=== PATIENT | male | born 1960 | race American Indian/Alaskan Native ===

== ENCOUNTER 2017-03-08 06:05 | Emergency (ER) | payer OTHER ==
[2017-03-08 06:58] LABS: Basophils % (Auto) 0.7 % (0.0-1.8); Eosinophils % (Auto) 1.1 % (0.0-4.3); Hematocrit 49.7 % (35.5-45.6); Hemoglobin 16.7 gm/dl (11.8-15.2); Mean Corpuscular HGB Conc 34 % (32-34); Mean Corpuscular Hemoglobin 31 pg (28-32); Mean Corpuscular Volume 92 fl (84-94); Platelet Count 199 K/mm3 (140-440); Red Cell Distribution Width 13.6 % (13.2-15.2); White Blood Count 7.7 K/mm3 (4.5-11.0)
[2017-03-08 07:18] LABS: Alanine Aminotransferase 14 units/L (7-56); Albumin 4.6 g/dL (3.9-5); Albumin/Globulin Ratio 1.6 %; Alkaline Phosphatase 44 units/L (35-129); Anion Gap 17 mmol/L; BUN/Creatinine Ratio 15.83; Bilirubin,Total 0.9 mg/dL (0.1-1.2); Blood Urea Nitrogen 19 mg/dL (9-20); Calcium 9.5 mg/dL (8.4-10.2); Carbon Dioxide 24 mmol/L (22-30); Chloride 99.8 mmol/L (98-107); Glucose 109 mg/dL (75-100); Lipase 22 units/L (13-60); Potassium 3.8 mmol/L (3.6-5.0); Sodium 137 mmol/L (137-145); Total Protein 7.5 g/dL (6.3-8.2)
[2017-03-08 08:07] LABS: Bilirubin,Urine NEG (Negative); Blood,Urine MOD (Negative); Ketones,Urine NEG (Negative); Leukocyte Esterase,Urine NEG (Negative); Mucus,Urine FEW /HPF; Nitrite,Urine NEG (Negative); Protein,Urine <15 mg/dL mg/dL (Negative); Urobilinogen,Urine < 2.0 mg/dL (<2.0)
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
[2017-03-08] MEDS: NACL 0.9% 1000 ML 1,000 ML IV ONE (10:44)
[2017-03-08] MEDS: ZOFRAN IV ONE (11:10)
[2017-03-08] MEDS: NACL ONE (11:10)
[2017-03-08] MEDS: TORADOL IV ONE (11:11)
--- NOTE | 2017-03-08 11:48 | Cat Scan Report ---
CT of the abdomen and pelvis with IV and oral contrast. History: Abdominal pain. Findings: A subcentimeter round hypodensity is seen in the superior aspect of the left lobe of the liver. A 1 cm diameter area of homogeneous enhancement is also seen in the superior aspect of the liver. No additional focal hepatic findings are seen. The spleen, pancreas, and gallbladder are normal. The adrenal glands are normal. There is a 4.2 cm in diameter cysts in the upper pole of the left kidney. A subcentimeter hypodensity is seen in the lower pole of the left kidney. 2 tiny subcentimeter hypodensities are seen in the right kidney. There is no evidence of hydronephrosis. There are no pelvic masses or abnormal fluid collections. The appendix is normal. There are no pelvic masses or abnormal fluid collections. Impression: 1. No acute findings. 2. Bilateral renal cysts. 3. Tiny hepatic cyst. A 1 cm enhancing lesion in the right lobe of the liver is nonspecific, but probably represents a cavernous hemangioma.
[2017-03-08 13:58] VITALS: BP 168/74
== END 2017-03-08 11:56 | disposition home or self-care (01) ==
LOC: ED 06:05
DX: R10.84 Generalized abdominal pain (principal); I10 Essential (primary) hypertension
CPT/HCPCS: 36415; 74177; 80053; 81001; 83690; 85025; 96361; 96374; 96375; 99284; J1885; J2405; J7030; Q9967

== ENCOUNTER 2018-05-08 06:48 | Inpatient (IN) | payer OTHER ==
[2018-05-08] MEDS ORDERED: ASPIRIN PO ONE (07:02)
[2018-05-08 07:42] LABS: Basophils % (Auto) 0.8 % (0.0-1.8); Eosinophils # (Auto) 0.1 K/mm3 (0.0-0.4); Eosinophils % (Auto) 1.7 % (0.0-4.3); Hematocrit 46.6 % (35.5-45.6); Hemoglobin 16.1 gm/dl (11.8-15.2); Lymphocytes # (Auto) 1.5 K/mm3 (1.2-5.4); Lymphocytes % (Auto) 35.2 % (13.4-35.0); Mean Corpuscular HGB Conc 34 % (32-34); Mean Corpuscular Hemoglobin 31 pg (28-32); Mean Corpuscular Volume 91 fl (84-94); Monocytes # (Auto) 0.4 K/mm3 (0.0-0.8); Monocytes % (Auto) 8.8 % (0.0-7.3); Platelet Count 193 K/mm3 (140-440); Red Blood Count 5.13 M/mm3 (3.65-5.03)
[2018-05-08 07:57] LABS: BUN/Creatinine Ratio 19; Blood Urea Nitrogen 15 mg/dL (9-20); Calcium 9.3 mg/dL (8.4-10.2); Hemolysis Index 12
[2018-05-08] MEDS ORDERED: NITRO-BID 2% TP ONE (11:09)
[2018-05-08] MEDS ORDERED: PROTONIX IV ONE (11:09)
[2018-05-08] MEDS ORDERED: ASPIRIN ONE (11:21)
[2018-05-08 12:11] LABS: INR 0.81 (0.87-1.13)
[2018-05-08 12:12] LABS: Partial Thromboplastin Time 49.6 Sec. (24.2-36.6)
[2018-05-08 12:22] LABS: Creatine Kinase MB 5.1 ng/mL (0.0-4.0)
[2018-05-08 12:24] LABS: Alanine Aminotransferase 12 units/L (7-56); Albumin 3.8 g/dL (3.9-5); Lipase 29 units/L (13-60)
[2018-05-08 12:25] LABS: Bilirubin,Direct < 0.2 mg/dL (0-0.2)
--- NOTE | 2018-05-08 12:45 | XRay Report ---
PORTABLE CHEST INDICATION: Hypertension. COMPARISON: 05/27/2015 FINDINGS: Portable, frontal chest radiograph demonstrates stable cardiomediastinal silhouette/possible mild cardiomegaly. Clear lungs. Stable lower cervical fusion hardware and multilevel thoracic spondylosis. EKG leads. CONCLUSION: No acute chest process, stable. Thank you for the opportunity to participate in this patient's care.
--- NOTE | 2018-05-08 12:51 | History and Physical Report ---
History of Present Illness Chief complaint: My chest hurts. History of present illness: 57 YO Male with HTN, Noncompliance presents to ED for evaluation. Pt states that he has experienced pain in his chest. Pt states that pain is 6-8/10, substernal, nonradiating, not worsened with exertion, or relieved with rest, associated with nausea, vomiting, and diaphoresis. Pt seen and evaluated in ED and found to have symptoms of ACD as well as Diastolic CHF. Pt denies fever, chills, shortness of breath, palpitations, prolonged travel, unilateral leg swelling, calf pain, individual/family history of DVT/PE, productive cough, trauma, or recent ill contacts. Pt admitted to telemetry. Cardiology consulted in ED. Past History Past Medical History: hypertension Past Surgical History: Other (Neck surgery) Social history: , lives with family. denies: smoking, alcohol abuse, prescription drug abuse Family history: hypertension Medications and Allergies Allergies Allergy/AdvReac Type Severity Reaction Status Date / Time No Known Allergies Allergy Verified 11/16/16 08:21 Home Medications Medication Instructions Recorded Confirmed Last Taken Type No Known Home Medications [No 05/08/18 05/08/18 Unknown History Reported Home Medications] Review of Systems Constitutional: no weight loss, no weight gain, no fever, no chills Ears, nose, mouth and throat: no ear pain, no ear discharge, no tinnitis, no decreased hearing, no nose pain, no nasal congestion Cardiovascular: chest pain, high blood pressure, no palpitations, no rapid/ irregular heart beat, no lightheadedness Respiratory: no cough, no cough with sputum, no excessive sputum, no hemoptysis Gastrointestinal: no nausea, no vomiting, no diarrhea, no constipation Genitourinary Male: no hematuria, no flank pain, no discharge, no urinary frequency Rectal: no pain, no incontinence, no bleeding Musculoskeletal: no neck stiffness, no neck pain, no shooting arm pain, no arm numbness/tingling, no low back pain, no shooting leg pain Integumentary: no rash, no pruritis, no redness, no sores, no wounds Neurological: no transient paralysis, no paralysis, no weakness, no parathesias , no numbness, no tingling, no seizures Psychiatric: no anxiety, no memory loss, no change in sleep habits, no sleep disturbances, no insomnia, no hypersomnia Endocrine: no cold intolerance, no heat intolerance, no polyphagia, no excessive thirst, no polydipsia, no polyuria, no nocturia Hematologic/Lymphatic: no easy bruising, no easy bleeding, no lymphadenopathy, no lymphedema Allergic/Immunologic: no urticaria, no allergic rhinitis, no wheezing, no persistent infections, no anaphylaxis, no angioedema Exam - Constitutional Vitals: Temp Pulse Resp BP Pulse Ox 98.2 F 58 L 12 157/79 97 05/08/18 08:13 05/08/18 08:18 05/08/18 08:18 05/08/18 08:18 05/08/18 08:18 General appearance: Present: mild distress - EENT Eyes: Present: PERRL ENT: hearing intact, clear oral mucosa - Neck Neck: Present: supple, normal ROM - Respiratory Respiratory effort: normal Respiratory: bilateral: CTA - Cardiovascular Heart Sounds: Present: S1 & S2. Absent: rub, click - Extremities Extremities: pulses symmetrical, No edema Peripheral Pulses: within normal limits - Abdominal General gastrointestinal: Present: soft, non-tender, non-distended, normal bowel sounds Male genitourinary: Present: normal - Integumentary Integumentary: Present: clear, warm, dry - Musculoskeletal Musculoskeletal: gait normal, strength equal bilaterally - Psychiatric Psychiatric: appropriate mood/affect, intact judgment & insight - Neurologic Neurologic: CNII-XII intact, moves all extremities Results - Labs CBC & Chem 7: 05/08/18 07:04 05/08/18 07:04 Labs: Abnormal lab results 05/08/18 05/08/18 05/08/18 Range/Units 07:04 07:04 10:19 WBC 4.2 L (4.5-11.0) K/mm3 RBC 5.13 H (3.65-5.03) M/mm3 Hgb 16.1 H (11.8-15.2) gm/dl Hct 46.6 H (35.5-45.6) % Lymph % (Auto) 35.2 H (13.4-35.0) % [place] % (Auto) 8.8 H (0.0-7.3) % PT (12.2-14.9) Sec. INR (0.87-1.13) APTT (24.2-36.6) Sec. Glucose 111 H (75-100) mg/dL Total Creatine Kinase 307 H (55-170) units/L CK-MB (CK-2) 5.1 H (0.0-4.0) ng/mL Albumin 3.8 L (3.9-5) g/dL 05/08/18 Range/Units 11:29 WBC (4.5-11.0) K/mm3 RBC (3.65-5.03) M/mm3 Hgb (11.8-15.2) gm/dl Hct (35.5-45.6) % Lymph % (Auto) (13.4-35.0) % [place] % (Auto) (0.0-7.3) % PT 11.6 L (12.2-14.9) Sec. INR 0.81 L (0.87-1.13) APTT 49.6 H (24.2-36.6) Sec. Glucose (75-100) mg/dL Total Creatine Kinase (55-170) units/L CK-MB (CK-2) (0.0-4.0) ng/mL Albumin (3.9-5) g/dL Assessment and Plan - Patient Problems (1) ACS (acute coronary syndrome) Current Visit: Yes Status: Acute Plan to address problem: Admit to telemetry, serial cardiac enzymes, ekg, echo, stress test, Morphine, supplemental oxygen, nitro, aspirin, cardiology consulted (2) CHF (congestive heart failure) Current Visit: Yes Status: Acute Qualifiers: Heart failure type: diastolic Plan to address problem: Admit to telemetry, Echo, Strict I/O, daily weight, monitor uop q shift, afterload reduction, cardiology consulted, BNP, D dimer, (3) HTN (hypertension) Current Visit: Yes Status: Acute Qualifiers: Hypertension type: essential hypertension Qualified Code(s): I10 - Essential (primary) hypertension Plan to address problem: Monitor BP q shift, continue medical management (4) GERD (gastroesophageal reflux disease) Current Visit: Yes Status: Acute Qualifiers: Esophagitis presence: without esophagitis Qualified Code(s): K21.9 - Gastro -esophageal reflux disease without esophagitis Plan to address problem: PPI therapy, CT Abdomen/Pelvis (5) DVT prophylaxis Current Visit: Yes Status: Acute Plan to address problem: SCD to ble while in bed.
--- NOTE | 2018-05-08 13:28 | Cat Scan Report ---
CT HEAD WITHOUT CONTRAST INDICATION: Vertigo. COMPARISON: None similar. FINDINGS: Noncontrast head CT demonstrates normal, symmetric ventricles and sulci without acute or recent infarct, hemorrhage, mass effect or midline shift. No abnormal extra-axial fluid collections. Posterior fossa structures and basilar cisterns appear within normal limits. Symmetric eye globes. Clear paranasal sinuses and mastoid air cells. Intact calvarium. Normal overlying scalp soft tissues. Right more than left external auditory canal debris may be directly visualized. Slight atherosclerotic ICA calcification. Edentulous jaw. Anterior and posterior cervical fusion hardware noted from C4 inferiorly. CONCLUSION: No acute intracranial CT abnormality with few other findings, as described. Thank you for the opportunity to participate in this patient's care.
[2018-05-08] MEDS ORDERED: BABY ASPIRIN PO STA (14:17)
[2018-05-08] MEDS ORDERED: MORPHINE IV PRN (14:17)
[2018-05-08] MEDS ORDERED: TYLENOL PO PRN (14:17)
[2018-05-08] MEDS ORDERED: ZOFRAN IV PRN (14:17)
[2018-05-08] MEDS ORDERED: SODIUM CHLORIDE FLUSH SYRINGE 10 ML IV PRN ×2 (14:17)
[2018-05-08] MEDS ORDERED: NITROSTAT SL PRN (14:17)
[2018-05-08] MEDS ORDERED: PROVENTIL IH PRN (14:17)
--- NOTE | 2018-05-08 14:48 | Cat Scan Report ---
CT ABDOMEN AND PELVIS WITH CONTRAST INDICATION: Epigastric pain. COMPARISON: 03/08/2017. FINDINGS: Abdomen and pelvis CT performed following intravenous administration of 100 cc of Omnipaque 300. LUNG BASES: Mild cardiomegaly again noted. Slight nonspecific distal esophageal prominence. ABDOMEN: Approximately 0.5 cm indeterminate hepatic hypodensity anteriorly towards the dome, axial image 9, series 2 and another 0.3 cm right hepatic hypodensity more inferiorly on axial image 16 again noted. A 1.4 cm peripheral enhancing hepatic focus anteriorly, possibly vascular/cavernous hemangioma as on axial image 15 is also stable, not visualized/isodense on the delayed phase. Bilateral renal cortical hypodensities/cysts also again seen measuring up to 4.4 cm and partly exophytic on the left superiorly. Few small bilateral renal parapelvic cysts also again noted. Spleen, gallbladder, pancreas, adrenals, nonaneurysmal abdominal aorta with few atherosclerotic calcifications and IVC within normal limits. No ascites or size significant adenopathy. Nonopacified GI tract evaluation limited, though grossly nonobstructive. Normal appendix. PELVIS: Grossly age-appropriate prostate, seminal vesicles and well-distended urinary bladder. Usual rectosigmoid stool. No free fluid or significant adenopathy. A 2.2 cm fat containing left inguinal hernia again noted. Multilevel spinal degenerative spurring again noted with largest lower thoracic right-sided osteophytes. Mild bilateral hip degenerative changes as well. CONCLUSION: No acute CT abnormality or significant interval change with various stable findings, as above. Thank you for the opportunity to participate in this patient's care.
--- NOTE | 2018-05-08 17:43 | Consultation ---
History of Present Illness Consult date: 05/08/18 Consult reason: chest pain History of present illness: The patient is a 57-year-old man with a history of hypertension, poorly compliant with his antihypertensive medications. There is no prior cardiac history, thallium stress test and echocardiogram performed in this hospital 2 years ago were reported negative. He presents to the hospital with complaints of epigastric pain. The patient specifically states that he does not have chest pain, but has had long-standing epigastric pain which is often associated with nausea and vomiting. There is no exertional component, there is no shortness of breath and no lower extremity edema. On exam, he does have reproducible tenderness in the epigastric area and right upper quadrant. There is no guarding and no rebound tenderness. EKG is abnormal, sinus rhythm with a pattern of an old anteroseptal myocardial infarction. However I was able to compare with his serial ECGs dating back to 2012, and the pattern has not changed. Initial cardiac enzymes are negative. Past History Past Medical History: hypertension Medications and Allergies Allergies Allergy/AdvReac Type Severity Reaction Status Date / Time No Known Allergies Allergy Verified 11/16/16 08:21 Home Medications Medication Instructions Recorded Confirmed Last Taken Type No Known Home Medications [No 05/08/18 05/08/18 Unknown History Reported Home Medications] Active Meds: Active Medications Acetaminophen (Tylenol) 650 mg PO Q4H PRN PRN Reason: Pain MILD(1-3)/Fever >100.5/JOHNSON Albuterol (Proventil) 2.5 mg IH Q4HRT PRN PRN Reason: Shortness Of Breath Morphine Sulfate (Morphine) 2 mg IV Q4H PRN PRN Reason: Pain, Moderate (4-6) Last Admin: 05/08/18 14:54 Dose: 2 mg Nitroglycerin (Nitrostat) 0.4 mg SL Q5M PRN PRN Reason: Chest Pain Ondansetron HCl (Zofran) 4 mg IV Q8H PRN PRN Reason: Nausea And Vomiting Pneumococcal Polyvalent Vaccine (Pneumovax 23) 0.5 ml IM .ONCE ONE Stop: 05/09/18 12:01 Sodium Chloride (Sodium Chloride Flush Syringe 10 Ml) 10 ml IV BID JOSEPH Sodium Chloride (Sodium Chloride Flush Syringe 10 Ml) 10 ml IV PRN PRN PRN Reason: LINE FLUSH Sodium Chloride (Sodium Chloride Flush Syringe 10 Ml) 10 ml IV PRN PRN PRN Reason: LINE FLUSH Review of Systems Cardiovascular: no chest pain, no orthopnea, no palpitations, no rapid/ irregular heart beat, no edema, no syncope, no lightheadedness, no shortness of breath Gastrointestinal: abdominal pain Physical Examination Vital Signs Temp Pulse Resp BP Pulse Ox 97.9 F 61 18 165/76 96 05/08/18 06:58 05/08/18 06:58 05/08/18 06:58 05/08/18 06:58 05/08/18 06:58 General appearance: no acute distress HEENT: Positive: PERRL Neck: Positive: neck supple Cardiac: Positive: Reg Rate and Rhythm Lungs: Positive: clear to auscultation Neuro: Positive: Grossly Intact Abdomen: Positive: Soft, Tender (epigastric area, right upper quadrant) Male genitourinary: Positive: deferred Skin: Positive: Clear Extremities: Absent: edema Results 05/08/18 07:04 05/08/18 07:04 Cardiac Enzymes 05/08/18 Range/Units 10:19 AST 20 (5-40) units/L CK-MB (CK-2) 5.1 H (0.0-4.0) ng/mL Coagulation 05/08/18 Range/Units 11:29 PT 11.6 L (12.2-14.9) Sec. INR 0.81 L (0.87-1.13) APTT 49.6 H (24.2-36.6) Sec. CBC 05/08/18 Range/Units 07:04 WBC 4.2 L (4.5-11.0) K/mm3 RBC 5.13 H (3.65-5.03) M/mm3 Hgb 16.1 H (11.8-15.2) gm/dl Hct 46.6 H (35.5-45.6) % Plt Count 193 (140-440) K/mm3 Lymph # 1.5 (1.2-5.4) K/mm3 [place] # 0.4 (0.0-0.8) K/mm3 Eos # 0.1 (0.0-0.4) K/mm3 Baso # 0.0 (0.0-0.1) K/mm3 Comprehensive Metabolic Panel 05/08/18 05/08/18 Range/Units 07:04 10:19 Sodium 140 (137-145) mmol/L Potassium 3.8 (3.6-5.0) mmol/L Chlor[place] 101.0 (98-107) mmol/L Carbon Dioxide 26 (22-30) mmol/L BUN 15 (9-20) mg/dL Creatinine 0.8 (0.8-1.5) mg/dL Glucose 111 H (75-100) mg/dL Calcium 9.3 (8.4-10.2) mg/dL Direct Bilirubin < 0.2 (0-0.2) mg/dL Indirect Bilirubin 0.3 mg/dL AST 20 (5-40) units/L ALT 12 (7-56) units/L Alkaline Phosphatase 46 (35-129) units/L Total Protein 6.6 (6.3-8.2) g/dL Albumin 3.8 L (3.9-5) g/dL EKG interpretations - Telemetry EKG Rhythm: Sinus Rhythm (with pattern of old anteroseptal myocardial infarction ) Assessment and Plan - Patient Problems (1) Chest pain Current Visit: No Status: Acute Plan to address problem: Chest pain is atypical, patient mostly complains of epigastric and right upper quadrant pain with some tenderness. Recommend GI evaluation and right upper quadrant ultrasound. (2) Hypertension Current Visit: Yes Status: Acute Plan to address problem: We will treat his chronic hypertension with valsartan 80 mg daily. (3) Abnormal EKG Current Visit: Yes Status: Acute Plan to address problem: Patient's EKG at baseline has a pattern of an old anteroseptal myocardial infarction. However these changes are not new, and having consistent on his ECG since 2012.
[2018-05-08 20:44] LABS: Bilirubin,Urine NEG (Negative); Blood,Urine NEG (Negative); Color,Urine Yellow (Yellow); Protein,Urine <15 mg/dL mg/dL (Negative); Urobilinogen,Urine < 2.0 mg/dL (<2.0)
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
[2018-05-08 20:55] LABS: Amphetamine Screen,Urine PRESUMPTIVE NEGATIVE; Benzodiazepines Screen,Urine PRESUMPTIVE NEGATIVE; Cannabinoid Screen,Urine PRESUMPTIVE NEGATIVE; Cocaine Screen,Urine PRESUMPTIVE NEGATIVE; Methadone Screen,Urine PRESUMPTIVE NEGATIVE; Opiate Screen,Urine PRESUMPTIVE NEGATIVE
[2018-05-08] MEDS ORDERED: SODIUM CHLORIDE FLUSH SYRINGE 10 ML IV SCH (22:00)
[2018-05-09 08:57] VITALS: BP 138/79
--- NOTE | 2018-05-09 08:58 | Discharge Summary ---
Providers - Providers Date of Admission: 05/08/18 14:17 Date of discharge: 05/09/18 Attending physician: KOMAL BALTAZAR 05/08/18 Consult to Cardiac Rehabilitation [CONS] Routine Reason For Exam: Phase I 05/08/18 14:17 Consult to Cardiology [CONS] Routine Consulting Provider: TOÑA LEWIS Reason For Exam: acs Primary care physician: INTERVENTIONAL PAIN PHYSICIAN Hospitalization Condition: Stable Hospital course: Mr. Bonds is a 57 yo man with a history of hypertension who admitted for CHF with normal proBNP, pCXR and Acute coronary syndrome with negative Troponin x 3 and negative EKG for STEMI. Blood pressure was mildly elevated. Patient main compliant is stomach pains for "awhile". The stomach pains are located in the epigastric area with intermittent pains associated with burping and n/v on occasion, none currently. He tolerated a meal yesterday, he denies constipation or bowel issues. He states his pains stopped for 6 months, as he came to ED and received Zantac. He wants a job excuse and bp medications. He has no PCP. Education and counseling done. Cardiology canceled stress test and ordered abd u /s which I cancelled as his exam is normal and he is asymptomatic. His last episode of n/v was Tuesday. -GERD: referral for GI. PPI twice daily x 2 weeks -HTN no ACS, no CHF Disposition: DC- TO HOME OR SELFCARE Time spent for discharge: 34 minutes Core Measure Documentation - Palliative Care Palliative Care/ Comfort Measures: Not Applicable - Core Measures Any of the following diagnoses?: none - VTE Discharge Requirements Deep Vein Thrombosis/Pulmonary Embolism Present on Admission: No Has pt received <5 days of overlap therapy or INR<2.0: No Anticoagulant overlap therapy prescribed at discharge: No Contraindication No Overlap Therapy order at DC: Not Indicated Exam - Physical Exam Narrative exam: GEN: WDWN, NAD, Awake, Alert, Orientated x 3 HEENT: NCAT, EOMI, PERRL, OP Clear NECK: supple, no adenopathy, no thyromegaly, no JVD CVS/HEART: RRR, normal S1S2, pulses present bilaterally CHEST/LUNGS: CTA B, Symmetrical chest expansion, good air entry bilaterally GI/Abdomen: soft, NTND, good bowel sounds, no guarding or rebound, no epigastric tenderness /Bladder: no suprapubic tenderness, no CVA or paraspinal tenderness EXT/Skin: no c/c/e, no obvious rash, no pitting leg edema MSK: FROM x 4 Neuro: CN 2-12 grossly intact, no new focal deficits Psych: calm - Constitutional Vitals: Temp Pulse Resp BP Pulse Ox 97.6 F 52 L 20 145/77 97 05/09/18 05:25 05/09/18 05:41 05/09/18 05:41 05/09/18 05:24 05/09/18 05:24 Plan Activity: other (no strenous activity until cleared by PCP) Diet: clear liquids (and advance as tolerated) Additional Instructions: call [facility] [phone] for first available appointment. call Dr. Rancho Ward for stomach pains, acid reflux. no spicy foods, no fried foods, no Aspirin, no Motrin, no Ibuprofen, no Aleve, no Naprosyn, No Naproxen, no Goody's powder, no BC Goody and no Excedrin,. Only take Tylenol for pains. Follow up with: PRIMARY MD CATHI [Primary Care Provider] - 7 Days TIM WARD MD [Staff Physician] - 7 Days Forms: Work/School Release Form Prescriptions: amLODIPine [Norvasc] 5 mg PO DAILY #30 tab Pantoprazole [Protonix TAB] 40 mg PO BID 14 Days #28 tablet
[2018-05-09] MEDS ORDERED: DIOVAN PO SCH (10:00)
[2018-05-09] MEDS ORDERED: PROTONIX PO SCH (10:00)
[2018-05-09] MEDS ORDERED: PNEUMOVAX 23 IM ONE (12:00)
== END 2018-05-09 09:24 | disposition home or self-care (01) | DRG 392 ==
LOC: ED 06:48 → 4A 14:17
PROVIDERS: ADMIT Internal Medicine; ATTEND Internal Medicine
DX: K21.9 Gastro-esophageal reflux disease without esophagitis (principal); Z91.19 Patient's noncompliance with other medical treatment and regimen; Z82.49 Family history of ischemic heart disease and other diseases of the circulatory system; Z79.899 Other long term (current) drug therapy; I10 Essential (primary) hypertension
CPT/HCPCS: 36415; 70450; 71045; 74177; 80048; 80074; 80307; 81001; 82140; 82550; 82553; 83690; 83735; 83880; 84484; 85025; 85379; 85610; 85730; 86850; 86900; 86901; 90732; 93005; 93010; 96374; 96375; C9113; J2270; Q9967

== ENCOUNTER 2019-09-04 17:21 | Emergency (ER) | payer OTHER ==
--- NOTE | 2019-09-04 19:20 | Event Note ---
ED Screening Note ED Screening Note: This initial assessment/diagnostic orders/clinical plan/treatment(s) is/are subject to change based on patients health status, clinical progression and re- assessment by fellow clinical providers in the ED. Further treatment and workup at subsequent clinical providers discretion. Patient/guardian urged not to elope from the ED as their condition may be serious if not clinically assessed and managed. Initial orders include: 59yo BM states that he has significant upper middle stomach pain that is worse with eating or drinking. He states that it started 3 weeks ago and has become worse. He states that he tried TUMs and Zantac with no relief. He states that he has been vomiting and has not had any bowel movements.
[2019-09-04 19:59] LABS: Basophils % (Auto) 0.6 % (0.0-1.8); Eosinophils # (Auto) 0.1 K/mm3 (0.0-0.4); Eosinophils % (Auto) 1.9 % (0.0-4.3); Hematocrit 46.3 % (35.5-45.6); Hemoglobin 15.6 gm/dl (11.8-15.2); Lymphocytes # (Auto) 1.6 K/mm3 (1.2-5.4); Lymphocytes % (Auto) 27.6 % (13.4-35.0); Mean Corpuscular HGB Conc 34 % (32-34); Mean Corpuscular Volume 94 fl (84-94); Monocytes # (Auto) 0.4 K/mm3 (0.0-0.8); Monocytes % (Auto) 7.2 % (0.0-7.3); Platelet Count 212 K/mm3 (140-440); Red Blood Count 4.95 M/mm3 (3.65-5.03); Red Cell Distribution Width 13.9 % (13.2-15.2)
[2019-09-04 20:07] LABS: Amorphous Crystals,Urine Few; Bilirubin,Urine NEG (Negative); Blood,Urine SM (Negative); Color,Urine Yellow (Yellow); Mucus,Urine 1+ /HPF; Protein,Urine <15 mg/dL mg/dL (Negative); Urobilinogen,Urine < 2.0 mg/dL (<2.0)
--- NOTE | 2019-09-04 20:27 | XRay Report ---
ACUTE ABDOMEN SERIES 3 VIEWS 1948 INDICATION: abdominal pain COMPARISON: CT abdomen and pelvis 05/08/2018 FINDINGS: Lung buckner are clear. No pneumoperitoneum is seen. Gas is seen throughout the colon. No sourav wel dilatation is seen. Scattered air-fluid levels in small bowel and colon are nonspecific though ca n be seen with enteritis. Possible bilateral mild nephrolithiasis is seen. Signer Name: Todd Sidhu MD Signed: 09/04/2019 8:23 PM Workstation Name: [id number]
[2019-09-04 20:37] LABS: Alanine Aminotransferase 12 units/L (7-56); Albumin 4.4 g/dL (3.9-5); BUN/Creatinine Ratio 12; Blood Urea Nitrogen 11 mg/dL (9-20); Calcium 9.8 mg/dL (8.4-10.2); Hemolysis Index 11
[2019-09-04] MEDS ORDERED: PROTONIX IV ONE (21:15)
[2019-09-04] MEDS ORDERED: NACL 0.9% 1000 ML 1,000 ML IV ONE (21:15)
[2019-09-04] MEDS ORDERED: ALUM-MAG HYDROX-SIMETH 200-200-20MG/5ML PO ONE (21:15)
[2019-09-04] MEDS ORDERED: LIDOCAINE VISCOUS 2% PO ONE (21:15)
[2019-09-04] MEDS ORDERED: ZOFRAN IV ONE (21:15)
[2019-09-04] MEDS ORDERED: BENTYL PO ONE (21:16)
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
--- NOTE | 2019-09-05 00:45 | Cat Scan Report ---
CT abdomen pelvis w con INDICATION / CLINICAL INFORMATION: abd pain, constipation. TECHNIQUE: All CT scans at this location are performed using CT dose reduction for ALARA by means of automated e xposure control. COMPARISON: 05/08/2018 FINDINGS: Limited lower thoracic images show no acute pulmonary disease. ABDOMEN: The gallbladder and biliary system appear normal. A small hepatic cyst is seen. No other liver abnormality. Spleen and pancreas are normal. There are small intrarenal calculi bilaterally without hydronephrosis or ureteral stones. Bilateral renal cysts are identified. No small bowel distention. No mesenteric or retroperitoneal adenopathy. Adrenal glands are normal. Pelvis: A fat-containing left inguinal hernia is identified. No acute colon abnormality. The appendix is normal. The prostate is slightly prominent. There is sclerosis of the symphysis pubis with degenerative change. IMPRESSION: 1. Bilateral nephrolithiasis without hydronephrosis. 2. No acute abdominal or pelvic abnormality. 3. Fat-containing left inguinal hernia. Signer Name: Harlan Rosenthal MD Signed: 09/05/2019 12:40 AM Workstation Name: [id number]
[2019-09-05] MEDS ORDERED: ALUM-MAG HYDROX-SIMETH 200-200-20MG/5ML PO ONE (01:40)
[2019-09-05] MEDS ORDERED: LIDOCAINE VISCOUS 2% PO ONE (01:40)
[2019-09-05 02:09] VITALS: BP 162/81
== END 2019-09-05 01:50 | disposition home or self-care (01) ==
LOC: ED 17:21
DX: N20.0 Calculus of kidney (principal); K40.90 Unilateral inguinal hernia, without obstruction or gangrene, not specified as recurrent; K59.00 Constipation, unspecified; I10 Essential (primary) hypertension; Z79.899 Other long term (current) drug therapy
CPT/HCPCS: 36415; 74022; 74177; 80053; 81001; 83690; 84484; 85025; 93005; 93010; 96361; 96374; 96375; 99285; C9113; J2405; J7030; Q9967